=== PATIENT | female | born 1985 | race Caucasian/White ===

== ENCOUNTER 2017-05-04 17:47 | Emergency (ER) | payer OTHER, SELFPAY ==
[2017-05-04 18:26] LABS: UTC Influenza A Antigen Negative (Negative); UTC Influenza B Antigen Negative (Negative)
[2017-05-04 19:32] VITALS: BP 113/72; PULSE 81; RESP 16; TEMP 37.1; O2SAT 96; BMI 29.9
--- NOTE | 2017-05-04 19:37 | HMH.EDUTC ---
[facility] [place] Clinical Impression: Migraine Qualifiers: Migraine type: unspecified Status migrainosus presence: without status migrainosus Intractability: intractable Qualified Code(s): G43.919 - Migraine, unspecified, intractable, without status migrainosus Disposition: Home, Self-Care Condition on Discharge: Good Instructions: Migraine Headaches (Alternative Therapy), Migraine -- Adult, DI for Migraine, DI for Fever (Symptom) -- Adult Additional Instructions: If Migraine returns follow up with family doctor If you began to have the worst headache of your life go straight to the ER Return if needed Over the counter Motrin or Tylenol as needed for fever or pain Referrals: Srini Lam [Primary Care Provider] - Time of Disposition: 20:18 Medical Decision Making - Medical Records Medical records reviewed: Yes: I reviewed the patient's medical records. Vital Signs: 05/04/17 19:32 Temperature 98.8 F Temperature Source Temporal Artery Scan Pulse Rate [Left Brachial] 81 Respiratory Rate 16 Blood Pressure [Left Arm] 113/72 Blood Pressure Mean [Left Arm] 85 Blood Pressure Source [Left Arm] Automatic Cuff Blood Pressure Position [Left Arm] Sitting 02 Sat by Pulse Oximetry 96 Oxygen Delivery Method Room Air - Lab Data Lab Results 05/04/17 18:19: Influenza Type A Ag Negative, Influenza Type B Ag Negative Orders (Tests/Meds): ED MEDICATIONS Discontinued Medications Generic Name Dose Route Start Last Admin Trade Name Freq PRN Reason Stop Dose Admin Diphenhydramine HCl 25 mg 05/04/17 19:59 05/04/17 20:17 Benadryl 50mg/1ml Vial IM 05/04/17 20:00 25 mg ONCE ONE Administration Ketorolac Tromethamine 60 mg 05/04/17 20:05 05/04/17 20:17 Toradol 60mg/2ml Vial IM 05/04/17 20:06 60 mg ONCE ONE Administration Methylprednisolone Sodium Succinate 125 mg 05/04/17 20:01 Solu-Medrol 125mg/2ml Vial IM 05/04/17 20:02 ONCE ONE Metoclopramide HCl 10 mg 05/04/17 19:58 Metoclopramide 10mg Tablet PO 05/04/17 19:59 ONCE ONE Metoclopramide HCl 10 mg 05/04/17 20:04 05/04/17 20:17 Metoclopramide 10mg Tablet PO 05/04/17 20:05 10 mg ONCE ONE Administration - Venancio Inquiry Pt receiving controlled substance: No Venancio was queried for this patient: No - Reevaluation(s) Time: 20:30 (Patient state that headache improved since medication ) [facility] [place] - General Stated complaint: NOE,FEVER Mode of Arrival: Ambulatory Source of Information: Patient Limitations: No Limitations Description of Symptoms (Recalled from Triage Doc. by RN): C/O MIGRAINES, CONGESTION, BODYACHES, CHILLS HEENT Symptoms (Recalled from RN notes): Yes (MIGRAINES) Resp Symptoms (Recalled from RN notes): Yes (CONGESTION) Skin Symptoms (Recalled from RN notes): No MS Symptoms (Recalled from RN notes): Yes (BODYACHES) Functional Status (Recalled from RN notes): N/A - History of Present Illness Provider Complaint: Patient state that she woke up in the middle of the night last night with migraine headache. State that she has a history of migraines and this one feels like the others States that she was also having chills, fever and body aches State that she took some Motrin and went back to sleep then when she woke up today it was back and has continued throughout the day so she came in to get checked - Related Data Home Medications Medication Instructions Recorded Confirmed No Known Home Medications [No 05/04/17 05/04/17 Known Home Medications] Allergies Allergy/AdvReac Type Severity Reaction Status Date / Time Sulfa (Sulfonamide Allergy Unknown Verified 05/04/17 19:36 Antibiotics) [SULFA (SULFONAMIDE ANTIBIOTICS)] - Worker's Comp Is this a Worker's Comp case?: No [facility] History I have reviewed the patient's past medical history: Yes Medical History: Denies:: Cancer, Diabetes Mellitus Type 1, Diabetes Mellitus Type 2, MRSA Amputation: No
--- NOTE | 2017-05-04 19:41 | ED_ITS ---
[facility] [place] Disposition Clinical Impression: Migraine Qualifiers: Migraine type: unspecified Status migrainosus presence: without status migrainosus Intractability: intractable Qualified Code(s): G43.919 - Migraine, unspecified, intractable, without status migrainosus Disposition: Home, Self-Care Condition on Discharge: Good Instructions: Migraine Headaches (Alternative Therapy), Migraine -- Adult, DI for Migraine, DI for Fever (Symptom) -- Adult Additional Instructions: If Migraine returns follow up with family doctor If you began to have the worst headache of your life go straight to the ER Return if needed Over the counter Motrin or Tylenol as needed for fever or pain Referrals: Srini Lam [Primary Care Provider] - Time of Disposition: 20:18 Medical Decision Making - Medical Records Medical records reviewed: Yes: I reviewed the patient's medical records. Vital Signs: 05/04/17 19:32 Temperature 98.8 F Temperature Source Temporal Artery Scan Pulse Rate [Left Brachial] 81 Respiratory Rate 16 Blood Pressure [Left Arm] 113/72 Blood Pressure Mean [Left Arm] 85 Blood Pressure Source [Left Arm] Automatic Cuff Blood Pressure Position [Left Arm] Sitting 02 Sat by Pulse Oximetry 96 Oxygen Delivery Method Room Air - Lab Data Lab Results 05/04/17 18:19: Influenza Type A Ag Negative, Influenza Type B Ag Negative Orders (Tests/Meds): ED MEDICATIONS Discontinued Medications Generic Name Dose Route Start Last Admin Trade Name Freq PRN Reason Stop Dose Admin Diphenhydramine HCl 25 mg 05/04/17 19:59 05/04/17 20:17 Benadryl 50mg/1ml Vial IM 05/04/17 20:00 25 mg ONCE ONE Administration Ketorolac Tromethamine 60 mg 05/04/17 20:05 05/04/17 20:17 Toradol 60mg/2ml Vial IM 05/04/17 20:06 60 mg ONCE ONE Administration Methylprednisolone Sodium Succinate 125 mg 05/04/17 20:01 Solu-Medrol 125mg/2ml Vial IM 05/04/17 20:02 ONCE ONE Metoclopramide HCl 10 mg 05/04/17 19:58 Metoclopramide 10mg Tablet PO 05/04/17 19:59 ONCE ONE Metoclopramide HCl 10 mg 05/04/17 20:04 05/04/17 20:17 Metoclopramide 10mg Tablet PO 05/04/17 20:05 10 mg ONCE ONE Administration - Venancio Inquiry Pt receiving controlled substance: No Venancio was queried for this patient: No - Reevaluation(s) Time: 20:30 (Patient state that headache improved since medication ) [facility] [place] HPI - General Stated complaint: NOE,FEVER Mode of Arrival: Ambulatory Source of Information: Patient Limitations: No Limitations Description of Symptoms (Recalled from Triage Doc. by RN): C/O MIGRAINES, CONGESTION, BODYACHES, CHILLS HEENT Symptoms (Recalled from RN notes): Yes (MIGRAINES) Resp Symptoms (Recalled from RN notes): Yes (CONGESTION) Skin Symptoms (Recalled from RN notes): No MS Symptoms (Recalled from RN notes): Yes (BODYACHES) Functional Status (Recalled from RN notes): N/A - History of Present Illness Provider Complaint: Patient state that she woke up in the middle of the night last night with migraine headache. State that she has a history of migraines and this one feels like the others States that she was also having chills, fever and body aches State that she took some Motrin and went back to sleep then when she woke up today it was back and has continued throughout the d
[2017-05-04 20:30] VITALS: BP 113/72; PULSE 81; RESP 16; TEMP 37.1; O2SAT 96
[2017-05-04 20:33] LABS: UTC Pregnancy Test, Urine Negative (Negative); UTC Strep Screen (Rapid) Negative (Negative)
== END 2017-05-04 20:33 | disposition home or self-care (01) ==
PROVIDERS: Emergency Provider Nurse Practitioner; Family Provider Family Medicine; PCP Family Medicine
DX: G43.919 Migraine, unspecified, intractable, without status migrainosus (principal); Z88.2 Allergy status to sulfonamides; F17.210 Nicotine dependence, cigarettes, uncomplicated
CPT/HCPCS: 81025; 87804; 87880; 96372; 99203

== ENCOUNTER → 2018-03-24 12:52 | Outpatient (CLI) | payer OTHER, SELFPAY ==
[2018-03-24 14:49] LABS: Basophils % 0.5 % (0.1-2.0); Eosinophils # 0.3 K/mm3 (0.0-0.4); Eosinophils % 3.2 % (0.1-12.0); Hematocrit 45.2 % (37.0-47.0); Hemoglobin 14.6 g/dL (12.2-16.2); Lymphocytes # 1.9 K/mm3 (0.7-4.5); Lymphocytes % 22.9 % (10-50); Mean Corpuscular HGB Conc 32.3 g/dL (31.8-35.4); Mean Corpuscular Hemoglobin 30.5 pg (27.0-31.2); Mean Corpuscular Volume 94.6 fl (81-99); Mean Platelet Volume 8.8 fl (7.4-10.4); Monocytes # 0.4 K/mm3 (0.1-1.0); Monocytes % 4.6 % (1.7-9.3); Neutrophils # 5.8 K/mm3 (1.8-7.8); Neutrophils % 68.8 % (37.0-80.0); Platelet Count 225 K/mm3 (142-424); Red Blood Count 4.78 M/mm3 (4.20-5.40); Red Cell Distribution Width 13.7 % (11.5-17.5); White Blood Count 8.4 K/mm3 (4.8-10.8)
[2018-03-25 08:15] LABS: Rapid Plasma Reagin Ab Titer Non Reactive (NonRea<1:1)
[2018-03-27 09:34] LABS: HIV Screen 4th Generation wRfx Non Reactive (Non Reactive); Hepatitis B Surface Antigen Negative (Negative); Hepatitis C Antibody <0.1 s/co ratio (0.0-0.9); Rubella Antibodies, IgG 1.77 index (Immune >0.99)
== END ==
PROVIDERS: Visit Provider Nurse Practitioner Obstetrics & Gynecology
DX: Z34.90 Encounter for supervision of normal pregnancy, unspecified, unspecified trimester (principal); Z3A.01 Less than 8 weeks gestation of pregnancy
CPT/HCPCS: 36415; 85025; 86592; 86703; 86762; 86850; 87340; 87380; G0432

== ENCOUNTER → 2018-04-03 08:43 | Outpatient (CLI) | payer OTHER, SELFPAY ==
--- NOTE | 2018-04-03 08:46 | US_ITS ---
US OB transvaginal HISTORY: ITS.REASON: US OB Dates ORDERING PHYSICIAN: Chris Lopez MD PATIENT AGE: 32 years COMPARISON: None FINDINGS: An intrauterine gestational sac is present with a pole with a crown-rump length of 1.42cm correlating to gestational age of 7w6d. heart tones are present with an FHR of 144 bpm's. Yolk sac is noted. The amnion and chorion have not yet fused. There is a small collection of fluid adjacent to the gestational sac which could be an older area of subchorionic hemorrhage. Adnexa: Unremarkable. IMPRESSION: Live intrauterine gestation at 7 weeks 6 days as described above. Estimated due date by Ultrasound is 11/14/2018 Small area of fluid along the superior aspect of the gestational sac which could be due to a small area of subchorionic hemorrhage. Continued follow-up recommended
== END ==
PROVIDERS: PCP Nurse Practitioner Obstetrics & Gynecology; Visit Provider Nurse Practitioner Obstetrics & Gynecology
DX: O26.841 Uterine size-date discrepancy, first trimester (principal)
CPT/HCPCS: 76817

== ENCOUNTER → 2018-06-28 12:55 | Outpatient (CLI) | payer OTHER, SELFPAY ==
--- NOTE | 2018-06-28 12:59 | US_ITS ---
US OB /maternal detail: INDICATION: ITS.REASON: 20 wk Anatomy Scan-US Complete ORDERING PHYSICIAN: Chris Lopez MD PATIENT AGE: 32 years TECHNIQUE: ultrasound transabdominal scanning. COMPARISON: No previous relevant studies. FINDINGS: Single viable intrauterine gestation. Ceph position. Placenta: Post placenta grade 1. There is average amount fluid. The cervix appears satisfactory. Closed and measuring 5 cm in length. Complete survey performed and was unremarkable on the submitted images as in PACS. No discrete anomalies identified on survey imaging by technologist. Active fetus. Three-vessel cord with satisfactory umbilical cord insertion. 4- chamber heart noted. Survey of brain & ventricles unremarkable. Face and neck survey unremarkable. Diaphragm and chest views unremarkable. Abdomen: Both kidneys noted and unremarkable. Stomach noted and satisfactory. Spine: Survey of the spine satisfactory with no anomalies identified nor imaged. Both arms and legs noted. Amniotic Fluid: Adequate. Maternal adnexa: No significant findings. Measurements: Average ultrasound age 20w3d. Gestational Age 20w0d. Estimated due date by ultrasound age 0711/12/2018. Estimated weight 339 grams. BPD = 21w0d OFD = 20w4d HC = 20w0d AC = 20w3d FL = 20w1d Growth Percentile= 57 percent Heart Rate = 144 Cerebellum = 20w6d Humerus = 20w2d HC/AC is 1.15 (1.09-1.26). CI is 81% (70-86%). FL/BPD is 65%. FL/AC is 21%. IMPRESSION: There is a single live fetus which is in the cephalic presentation with an average ultrasound age of 20 weeks and 3 days. heart and body motion noted. No obvious anomalies. All parameters correlate. Please see above for details.
== END ==
PROVIDERS: PCP Nurse Practitioner Obstetrics & Gynecology; Visit Provider Nurse Practitioner Obstetrics & Gynecology
DX: Z36.0 Encounter for antenatal screening for chromosomal anomalies (principal)
CPT/HCPCS: 76811

== ENCOUNTER → 2018-08-22 08:09 | Outpatient (CLI) | payer OTHER, SELFPAY ==
[2018-08-22 08:44] LABS: Glucose,Fasting 78 mg/dL (60-105)
[2018-08-22 10:57] LABS: Glucose 1 Hour 133 mg/dL (74-106)
== END ==
PROVIDERS: Visit Provider Nurse Practitioner Obstetrics & Gynecology
DX: Z34.90 Encounter for supervision of normal pregnancy, unspecified, unspecified trimester (principal)
CPT/HCPCS: 36415; 82951

== ENCOUNTER 2018-08-25 10:28 | Outpatient (CLI) | payer OTHER, SELFPAY ==
[2018-08-25 11:01] VITALS: BP 144/74; PULSE 87; RESP 18; TEMP 36.6; O2SAT 99; BMI 33.4
[2018-08-25 11:24] LABS: Amphetamine/Metha Screen,Urine Negative ng/mL (<1000); Barbiturates Screen,Urine Negative ng/mL (<200); Benzodiazepines Screen,Urine Negative ng/mL (<200); Cannabinoid Screen,Urine Negative ng/mL (<50); Cocaine Screen,Urine Negative ng/mL (<300); Methadone Screen,Urine Negative ng/mL (<300); Opiate Screen,Urine Negative ng/mL (<300); Phencyclidine Screen,Urine Negative ng/mL (<25)
[2018-08-25 11:26] LABS: Microscopic, Urine URINE MICROSCOPIC (MICROSCOPIC)
[2018-08-25 11:27] LABS: Appearance,Urine CLEAR (Clear); Bilirubin,Urine Negative (Negative); Blood, Urine Negative (Negative); Color,Urine YELLOW (Yellow); Glucose,Urine (UA) Negative (Negative); Ketones,Urine Negative (Negative); Leukocyte Esterase,Urine 1+ (Negative); Nitrate,Urine Negative (Negative); Protein,Urine Negative (Negative); Urobilinogen,Urine 0.2 EU/dl (0.2)
[2018-08-25 11:35] LABS: Bacteria,Urine 2+ /lpf; Mucus,Urine 1+ /lpf
--- NOTE | 2018-08-25 12:46 | P.PN_ITS ---
Internal Medicine - PN: Subj *Date: 08/25/18 *Time: 12:37 Interval history: She is a 32-year-old 2 para 1 at 20 weeks gestational age. She is complaining of contractions. Exam Vital signs and Labs for Last 24 Hours: Temp Pulse Resp BP Pulse Ox 97.9 F 87 18 144/74 H 99 08/25/18 11:01 08/25/18 11:01 08/25/18 11:01 08/25/18 11:01 08/25/18 11:01 Laboratory Results - last 24 hr 08/25/18 10:40: Urine Color Yellow, Urine Appearance Clear, Urine pH 7.0, Ur Specific [place] 1.010, Urine Protein Negative, Urine Glucose (UA) Negative, Urine Ketones Negative, Urine Blood Negative, Urine Nitrate Negative, Urine Bilirubin Negative, Urine Urobilinogen 0.2, Ur Leukocyte Esterase 1+ A, Urine WBC 3-5, Ur Squamous Epith Cells 5-10, Urine Bacteria 2+, Urine Mucus 1+ 08/25/18 10:40: Urine Opiates Screen Negative, Urine Methadone Screen Negative, Ur Barbituates Screen Negative, Ur Phencyclidine Scrn Negative, Ur Amphetamines Screen Negative, U Benzodiazepines Scrn Negative, Urine Cocaine Screen Negative, U Marijuana (THC) Screen Negative I & O for Last 24 hours: Intake & Output 08/23/18 08/24/18 08/25/18 08/26/18 11:59 11:59 11:59 11:59 Weight 201 lb - Constitutional no acute distress - *Routine HEENT Exam Head: Present: normocephalic Eye: Present: EOMI, PERRL ENT: Present: mucous membranes moist - *Routine Neck Exam Present: supple, full ROM - *Routine Respiratory Exam Absent: accessory muscle use (good air entry bilaterally), wheezes, crackles - *Routine Cardiovascular Exam Present: RRR. Absent: murmur - *Routine Abdominal Exam Present: soft, normoactive bowel sounds. Absent: tenderness, rebound, guarding, mass - *Routine Rectal Exam Patient deferred: visual exam, digital exam - *Routine Exam Patient deferred: external exam, groin exam, perineal exam - *Routine Extremities Exam Present: full ROM. Absent: cyanosis, edema, calf tenderness - *Routine Skin Exam Present: intact (good color) - *Routine Neurological Exam Present: alert, oriented X3 - Routine Psychiatric Exam Present: normal affect Assessment and Plan (1) labor in third trimester Current visit: Yes Status: Acute Category: Medical Code(s): O60.03 - labor without delivery, third trimester - Assessment and plan all Dx Assessment and Plan for all problems:: We have given her IV fluids as well as 1 shot of Brethine. She also has received a dose of steroids and will return tomorrow for another dose of steroids. Contractions have settled. She has an appointment with me next week. Her cervix is closed internally but 2 cm externally. The head is station -1. I told her to get as much rest as possible. 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 I told her to take the next few days off and I will see her first of the week in the office. She will return tomorrow for another dose of steroids. She will return if she has any further episodes of contractions. I have also encouraged her to drink plenty of fluids.
== END 2018-08-25 12:40 | disposition home or self-care (01) ==
LOC: OBOUT 10:32 → OB 10:32
PROVIDERS: Visit Provider Nurse Practitioner Obstetrics & Gynecology
DX: O60.03 Preterm labor without delivery, third trimester (principal); Z3A.28 28 weeks gestation of pregnancy
CPT/HCPCS: 59025; 80305; 81001; 87086; 96360; 96372

== ENCOUNTER 2018-08-25 23:58 | Observation (INO) ==
[2018-08-26 00:32] VITALS: BP 150/86
--- NOTE | 2018-08-26 09:21 | History & Physical Report ---
OB - H&P: HPI Antepartum - History of Present Illness Chief complaint: labor History of present illness: She is a 32-year-old 2 para 1 who complains of contractions. She was seen here in labor and delivery yesterday and received Brethine as well as a liter of fluid. She subsequently was discharged home. Last evening she began to have more contractions and I asked her to come back to labor and delivery. [facility] History I have reviewed the patient's past medical history: Yes Medical History: Denies:: Cancer, Diabetes Mellitus Type 1, Diabetes Mellitus Type 2, MRSA *Have you ever received a pneumonia vaccine?: No *Have you received a flu vaccine this season?: No Other Surgeries: No: Amputation: No Fractures: No - *Social History Smoking Status: Current every day smoker Tobacco Type: cigarettes # Packs/Day (cigarettes): 1 Alcohol Intake: never Substance Use Type: denies use *Occupational Status:: employed Family Hx:: No significant family history Para: 1 Review of Systems - Review of Systems Review of systems:: pertinent systems reviewed and negative unless documented below Meds Home Medications Medication Instructions Recorded Confirmed Type 1 tab PO DAILY 04/26/18 08/25/18 History vitamin,calcium,bssaiutr-tqdk-kodck acid tablet Allergies Allergy/AdvReac Type Severity Reaction Status Date / Time Sulfa (Sulfonamide Allergy Unknown Verified 08/15/18 08:24 Antibiotics) [SULFA (SULFONAMIDE ANTIBIOTICS)] OB - H&P: Exam - Physical Exam Vital signs: Temp Pulse Resp BP Pulse Ox 98.8 F 117 H 18 150/86 H 96 08/26/18 00:28 08/26/18 00:28 08/26/18 00:28 08/26/18 00:28 08/26/18 00:28 - Constitutional no acute distress - Routine HEENT Exam Head: Present: normocephalic Eye: Present: EOMI, PERRL ENT: Present: mucous membranes moist - Routine Neck Exam Present: supple, full ROM - Routine Respiratory Exam Absent: accessory muscle use (good air entry bilaterally), respiratory distress, wheezes, crackles - Routine Cardiovascular Exam Present: RRR. Absent: murmur - Routine Abdominal Exam Present: soft, normoactive bowel sounds. Absent: tenderness, distended, guarding - Routine Rectal Exam Patient deferred: visual exam, digital exam - Routine Exam Patient deferred: external exam, groin exam, perineal exam - Routine Extremities Exam Present: full ROM. Absent: cyanosis, edema - Routine Skin Exam Present: intact. Absent: cyanosis - Routine Neurological Exam Present: alert, oriented X3 - Routine Psychiatric Exam Present: normal affect OB - A/P Antepartum (1) labor in third trimester Current visit: No Status: Acute - Additional Plan Plan: expectant management Additional Information:: She has received more fluids overnight as well as nifedipine. She has been taking nifedipine 10 mg every 6 hours. This seems to have settled her contractions. She is scheduled for another dose of Celestone later this morning. She does well this morning. We will send her home this afternoon.
--- NOTE | 2018-08-26 09:24 | Discharge Summary ---
General - General Admission date:: 08/26/18 Discharge date: 08/26/18 HPI HPI: She is a 32-year-old 2 para 1 at 20 weeks gestational age. She complains of contractions. She was seen yesterday afternoon with contractions and received IV fluids as well as Brethine. This settled her contractions. She subsequently began having more contractions later on that evening and she was admitted for labor. Hospital Course Hospital Course: She was admitted and received IV fluids. We started her on nifedipine 10 mg every 6 hours. This seemed to have settled her contractions. She did receive Celestone yesterday afternoon when she was here for her first bout of labor. She will receive a second dose prior to discharge this morning. She is no longer lisseth and the nonstress test is reactive. Objective Vital signs: Temp Pulse Resp BP Pulse Ox 98.8 F 117 H 18 150/86 H 96 08/26/18 00:28 08/26/18 00:28 08/26/18 00:28 08/26/18 00:28 08/26/18 00:28 no acute distress DS: Diagnosis - Discharge Diagnosis (1) labor in third trimester Status: Acute Discharge Plan - Patient Discharge Instructions ACTIVITY: No heavy lifting DIET: continue same diet - Follow up Plan Disposition: Home, Self-Assisted Medications: Home Medications Medication Instructions Recorded Confirmed Type 1 tab PO DAILY 04/26/18 08/25/18 History vitamin,calcium,cszqomrt-ezlv-rpjwi acid tablet NIFEdipine [NIFEdipine 10mg 10 mg PO Q6H #120 cap 08/26/18 Rx Capsule] Prescriptions/Medication Reconciliation: New NIFEdipine [NIFEdipine 10mg Capsule] 10 mg PO Q6H #120 cap Continued vitamin,calcium,cqokffyc-krqd-ktljf acid tablet 1 tab PO DAILY
== END 2018-08-26 12:00 | disposition home or self-care (01) ==
LOC: OB 23:58 → OBOUT 23:58 → OB 08-26 00:01
PROVIDERS: ADMIT Nurse Practitioner Obstetrics & Gynecology; ATTEND Nurse Practitioner Obstetrics & Gynecology
CPT/HCPCS: 59025; 96360; 96372; G0378

== ENCOUNTER 2018-08-30 14:36 | Outpatient (CLI) | payer OTHER, SELFPAY ==
[2018-08-30 14:47] VITALS: BMI 33.1
[2018-08-30 17:36] LABS: Microscopic, Urine URINE MICROSCOPIC (MICROSCOPIC)
[2018-08-30 17:40] LABS: Appearance,Urine CLEAR (Clear); Bilirubin,Urine Negative (Negative); Blood, Urine Negative (Negative); Color,Urine YELLOW (Yellow); Glucose,Urine (UA) Negative (Negative); Ketones,Urine Negative (Negative); Leukocyte Esterase,Urine 3+ (Negative); Nitrate,Urine Negative (Negative); Protein,Urine Negative (Negative); Urobilinogen,Urine 0.2 EU/dl (0.2)
[2018-08-30 18:09] LABS: Amphetamine/Metha Screen,Urine Negative ng/mL (<1000); Barbiturates Screen,Urine Negative ng/mL (<200); Benzodiazepines Screen,Urine Negative ng/mL (<200); Cannabinoid Screen,Urine Negative ng/mL (<50); Cocaine Screen,Urine Negative ng/mL (<300); Methadone Screen,Urine Negative ng/mL (<300); Opiate Screen,Urine Negative ng/mL (<300); Phencyclidine Screen,Urine Negative ng/mL (<25)
[2018-08-30 18:10] VITALS: BP 137/87; PULSE 109; RESP 18; TEMP 36.9; O2SAT 98
[2018-08-30 18:11] VITALS: BP 137/87; PULSE 109; RESP 18; TEMP 36.9; O2SAT 98; BMI 33.1
[2018-08-30 18:11] LABS: Bacteria,Urine Trace /lpf; WBC,Urine Occasional #/hpf (0-3)
== END 2018-08-30 17:50 | disposition home or self-care (01) ==
LOC: OBOUT 14:37 → OB 14:38
PROVIDERS: Visit Provider Nurse Practitioner Obstetrics & Gynecology
DX: O60.03 Preterm labor without delivery, third trimester (principal); Z3A.29 29 weeks gestation of pregnancy
CPT/HCPCS: 59025; 80305; 81001; 87086; 96360

== ENCOUNTER → 2018-10-12 15:46 | Outpatient (CLI) | payer OTHER, SELFPAY | PROVIDERS: Visit Provider Nurse Practitioner Obstetrics & Gynecology | DX: Z34.90 Encounter for supervision of normal pregnancy, unspecified, unspecified trimester (principal) | CPT/HCPCS: 86403 ==

== ENCOUNTER → 2018-10-27 08:48 | Outpatient (CLI) | payer OTHER, SELFPAY ==
--- NOTE | 2018-10-27 08:50 | US_ITS ---
US OB BPP w/Fet-Mat S/D: Indication: ITS.REASON: US OB- BPP Growth S/D Ratio- SGA ORDERING PHYSICIAN: Chrsi Lopez MD PATIENT AGE: 32 years FINDINGS: Transabdominal imaging The following parameters are obtained: Single live fetus is present in breech presentation. The urinary bladder of the fetus is somewhat prominent of questionable clinical significance. Average ultrasound age is 37w2d. Estimated due date by ultrasound is 11/15/2018. Estimated weight is 3078. The 49th percentile BPD: 38w1d OFD: OFD HC: 38w2d AC: 37w2d FL: 35w2d heart rate: 126 bpm. HC/AC: 1.00 (0.92-1.05) Cephalic index: 79% (70-86%) FL/BPD: 73% (71-87%) FL/AC: 21% (20-24%) Amniotic fluid index: 13 cm Qualitative AFV: 2 breathing movements: 2 Gross body movements: 2 Tone: 2 Biophysical profile score: 8/8 Doppler evaluation of the umbilical artery: SD ratio: 2.5 Resistive index: 0.60 No obvious anomalies evident. Placenta: Fundal and grade 2-3 Cervix: Appears closed and measures 3 cm IMPRESSION: Single live fetus in breech presentation with an average ultrasound age of 37 weeks and 2 days. Estimated weight is 3078 g which is 49th percentile. The femur length is slightly low but the FL/BPD and FL/AC are at lower limits of normal. Please see above for details Normal amniotic fluid volume with a biophysical profile. 8/8 and unremarkable Doppler evaluation of the umbilical artery
== END ==
PROVIDERS: Visit Provider Nurse Practitioner Obstetrics & Gynecology
DX: O36.5990 Maternal care for other known or suspected poor fetal growth, unspecified trimester, not applicable or unspecified (principal)
CPT/HCPCS: 76819

== ENCOUNTER 2018-11-08 11:28 | Inpatient (IN) ==
[2018-11-08 11:45] LABS: Microscopic, Urine URINE MICROSCOPIC (MICROSCOPIC)
[2018-11-08 11:47] LABS: Appearance,Urine SL CLOUDY (Clear); Blood, Urine Negative (Negative); Color,Urine DK YELLOW (Yellow); Glucose,Urine (UA) Negative (Negative); Ketones,Urine Negative (Negative); Leukocyte Esterase,Urine TRACE (Negative); PH,Urine 6.5 (5.0-8.5); Protein,Urine TRACE (Negative); Specific Gravity, Urine 1.025 (1.005-1.030); Urobilinogen,Urine 0.2 EU/dl (0.2)
[2018-11-08 11:55] LABS: Amphetamine/Metha Screen,Urine Negative ng/mL (<1000); Barbiturates Screen,Urine Negative ng/mL (<200); Benzodiazepines Screen,Urine Negative ng/mL (<200); Cannabinoid Screen,Urine Negative ng/mL (<50); Cocaine Screen,Urine Negative ng/mL (<300); Methadone Screen,Urine Negative ng/mL (<300); Opiate Screen,Urine Negative ng/mL (<300); Phencyclidine Screen,Urine Negative ng/mL (<25)
[2018-11-08 12:02] LABS: Bilirubin,Urine Negative (Negative)
[2018-11-08 12:08] LABS: Bacteria,Urine Trace /lpf; WBC,Urine Occasional #/hpf (0-3)
--- NOTE | 2018-11-08 13:26 | Progress Note ---
[facility] Anesthesia Checklist - Patient Identification Patient Identification: Arm Band - Structural Data Admitted From: Inpatient Planned Operative Procedure/s: primary c/s, btl Consent for Planned Operative Procedure(s) Verified: Yes Verified Documents: Surgical Consent, History and Physical - NPO Status Verified Time NPO: 00:00 - Additional verifications Anesthesia Reactions: No - Airway Assessment C-Spine Mobility Assessed: Yes (mp2) TMJ Mobility Assessed: Yes Dentition: Good Dentition - Neurological Assessment Level of Consciousness: Awake, Alert - Anesthesia Plan Anesthesia Risk discussed: Yes Anesthesia Plan: Verified ASA Class: II Anesthesia Type: Spinal [facility] History I have reviewed the patient's past medical history: Yes Medical History: Reports:: Gastroesophageal Reflux Disease(GERD) Denies:: Cancer, Diabetes Mellitus Type 1, Diabetes Mellitus Type 2, MRSA *Have you ever received a pneumonia vaccine?: No *Have you received a flu vaccine this season?: No Other Surgeries: Yes: Appendectomy, Other. No: Amputation: No Fractures: No - *Social History Smoking Status: Current every day smoker Tobacco Type: cigarettes # Packs/Day (cigarettes): 1 Alcohol Intake: never Substance Use Type: denies use *Occupational Status:: employed *Travel in the last 8 weeks: Inside the [facility] Family Hx:: No significant family history Para: 1
--- NOTE | 2018-11-08 13:28 | Progress Note ---
Internal Medicine - PN: Subj *Date: 11/08/18 *Time: 13:23 Interval history: She came in in active labor and is having regular contractions. She is noted to be breech and had been scheduled for tomorrow morning. Her cervix is 4 cm with the high presented part. She also had a small amount of vaginal bleeding that I suspect was related to changes in her cervix. Nonstress test is otherwise reactive. We will make arrangements for her to have a section this afternoon. Exam Vital signs and Labs for Last 24 Hours: Temp Pulse Resp BP Pulse Ox 97.5 F L 108 H 18 132/82 97 11/08/18 11:45 11/08/18 11:45 11/08/18 11:45 11/08/18 11:45 11/08/18 11:45 Laboratory Results - last 24 hr 11/08/18 11:35: Urine Color Dk yellow, Urine Appearance Sl cloudy, Urine pH 6.5, Ur Specific [place] 1.025, Urine Protein Trace, Urine Glucose (UA) Negative, Urine Ketones Negative, Urine Blood Negative, Urine Nitrate Negative, Urine Bilirubin Negative, Urine Urobilinogen 0.2, Ur Leukocyte Esterase Trace, Urine RBC None, Urine WBC Occasional, Ur Squamous Epith Cells 3-5, Urine Bacteria Trace 11/08/18 11:35: Urine Opiates Screen Negative, Urine Methadone Screen Negative, Ur Barbituates Screen Negative, Ur Phencyclidine Scrn Negative, Ur Amphetamines Screen Negative, U Benzodiazepines Scrn Negative, Urine Cocaine Screen Negative, U Marijuana (THC) Screen Negative I & O for Last 24 hours: Intake & Output 11/06/18 11/07/18 11/08/18 11/09/18 11:59 11:59 11:59 11:59 Weight 214 lb - Constitutional no acute distress Assessment and Plan (1) Breech presentation at Current visit: Yes Status: Acute Category: Medical Code(s): O32.1XX0 - Maternal care for breech presentation, not applicable or unspecified - Assessment and plan all Dx Assessment and Plan for all problems:: We will go ahead with a section this afternoon.
[2018-11-08 14:09] LABS: Basophils % 0.2 % (0.1-2.0); Eosinophils # 0.1 K/mm3 (0.0-0.4); Eosinophils % 0.9 % (0.1-12.0); Hematocrit 36.4 % (37.0-47.0); Hemoglobin 11.7 g/dL (12.2-16.2); Lymphocytes # 1.8 K/mm3 (0.7-4.5); Lymphocytes % 15.5 % (10-50); Mean Corpuscular HGB Conc 32.3 g/dL (31.8-35.4); Mean Corpuscular Volume 85.3 fl (81-99); Monocytes # 1.1 K/mm3 (0.1-1.0); Monocytes % 9.3 % (1.7-9.3); Neutrophils # 8.6 K/mm3 (1.8-7.8); Platelet Count 196 K/mm3 (142-424); Red Blood Count 4.27 M/mm3 (4.20-5.40); Red Cell Distribution Width 14.6 % (11.5-17.5); White Blood Count 11.6 K/mm3 (4.8-10.8)
--- NOTE | 2018-11-08 15:17 | Progress Note ---
[facility] Anesthesia Record Part I Intake, IV Amount: 1,000 Estimated blood loss (mL): 1,000 Urine output (mL): 100 Blood Products used (#): none Blood Pressure: 111/64 SaO2: 98 Pulse Rate: 82 Respiratory Rate: 20 Temperature: 97.7 F Patient is:: Awake, Stable Stable to PACU at:: 15:14
--- NOTE | 2018-11-08 15:18 | Progress Note ---
[facility] Anesthesia Record Part II Discharge Time: 15:44 Destination: Obstetric PACU nurse assessment reviewed?: Yes Patient Condition:: Good Anesthesia Complications:: None Swallowing reflex intact?: Yes Cyanosis?: No
--- NOTE | 2018-11-08 15:18 | Operative Note ---
Date of procedure: 11/08/18 Pre-op Diagnosis:: Term , active labor, breech presentation, desire for sterilization Post-op Diagnosis:: Term , active labor, breech presentation, desire for sterilization Procedure performed:: Primary lower segment transverse section and bilateral tubal ligation Surgeon:: Chris Lopez MD Stone Driller(s):: Dr. Betancourt BURIAL VAULT MAKER:: London Nuñez Anesthesia: spinal Estimated blood loss (mL): 1,000 Clinical Note:: She is a 33-year-old 3 para 2 who is 39 weeks gestational age. She was due to have a section tomorrow for breech presentation. She also expressed desire for sterilization. She came in in active labor and her cervix was found to be 4 cm dilated. As a result of that we elected to perform a Diogo lower segment transverse section today. Operative findings:: She delivered a liveborn male child at 2:32 PM in the afternoon of November 08, 2018. The baby Operative note:: She was taken to the operating room where spinal anesthesia was found be adequate. She was prepped and draped in normal sterile fashion in the supine position with a leftward tilt. A Ball catheter was in the bladder. A Pfannenstiel skin incision was made with knife then carried through to the underlying layer of fascia with cautery. The fascia was opened in the midline with cautery and extended laterally using Smith scissors. [place] clamps were applied to the superior aspect of the fascial incision which was tented up and the underlying rectus muscles dissected off using cautery. The Kenny clamps were then applied to the inferior aspect of the fascial incision which in a similar fashion was tented up and the underlying rectus muscles dissected off using cautery. The rectus muscles were then in the midline, the peritoneum identified, and entered sharply with Metzenbaum scissors. This incision was then extended superiorly and inferiorly with cautery. We had good visualization of the bladder inferiorly. The bladder peritoneum was then opened in the midline and extended laterally using Metzenbaum scissors. A bladder flap was created digitally. Transverse incision was made through the uterine muscle to the amnion. This incision was then extended laterally using fingers traction. The amnion was entered sharply with knife. There was clear amniotic fluid. The infant's breech was then delivered atraumatically. This was followed by the after coming head atraumatically. A loose nuchal cord was then reduced. The oropharynx and nasopharynx were bulb suctioned. The infant was then handed off to Dr. Herrera who assigned Apgars of 9 at 1 minute and 9 at 5 minutes. We then obtained cord blood as well as cord pH. The pH was 7.31. Using gentle traction on the cord and countertraction on the fundus I was able to easily deliver the placenta intact. It had a normal three-vessel cord. The uterus was then cleared of clots and debris . The uterine incision was then closed using running 0 Vicryl suture in a locked fashion. A second layer of the same suture was used to imbricate the first layer. The bladder peritoneum was then closed using running 2-0 Vicryl suture in a locked fashion. The gutters and cul-de-sac were then cleared of clots and debris . Once again hemostasis was a ssured. I then performed a tubal ligation by first grasping the tube with a Dexter and making a knuckle of tube. This was clamped across with Pauline clamp and doubly tied. The intervening section of tube was then removed. The distal ends were cauterized. This was similar performed on the patient's opposite side. The uterus was then returned to the abdominal cavity and once again hemostasis was assured. The peritoneum was grasped with Pauline clamps and closed using running 2-0 Vicryl suture. The rectus muscles were then reapproximated using running 0 Vicryl suture. The fascia was closed using running #1 Vicryl suture. The subcutaneous tissues were then irrigated with warm water followed by closure Samuel's fascia using running 2-0 Monocryl suture. The skin was closed with naveed. I then cleaned the skin with Hibiclens. Sterile dressings were applied. She tolerated the procedure well and was taken to the recovery room in excellent condition. All sponges minute and needle counts were correct. Estimate a blood loss was approximately 1000 mL. Condition: stable Disposition: PACU Specimens:: Products of conception, tubes Complications:: None
[2018-11-08 17:15] LABS: Lymphocytes % 16 % (10-50); Monocytes % 6 % (2-9); Neutrophils % 78 % (42-76); RBC Morphology Normal; Total Cells Counted 100
[2018-11-09 05:36] LABS: Hemoglobin 8.9 g/dL (12.2-16.2)
--- NOTE | 2018-11-09 07:48 | Pharmacy Consult Notes ---
[facility] Pharmacy VTE Monitoring - Patient Demographics Admission date: 11/08/18 Report Date: 11/09/18 Time: 07:47 Allergies/Adverse Reactions: Patient Allergies Sulfa (Sulfonamide Antibiotics) [SULFA (SULFONAMIDE ANTIBIOTICS)] Allergy (Unknown, Verified 11/06/18 14:58) Height: 1.65 m Weight: 97.069 kg Patient Problems: Current Active Problems (Updated 11/08/18 @ 13:28 by Chris Lopez MD) Breech presentation at (Acute) - VTE Risk Labs: VTE Related Lab Results Hgb 8.9 g/dL (12.2-16.2) L D 11/09/18 04:57 Hct 28.0 % (37.0-47.0) L 11/09/18 04:57 Plt Count 196 K/mm3 (142-424) 11/08/18 13:25 - Prophylaxis VTE Prophylaxis Ordered?: Yes Types of VTE Prophylaxis: IPCS Thigh High Location of Applied Device: Bilateral Lower Extremeties - VTE Diagnosis Confirmed Treatment or plan recommended: Continue Current Treatment
--- NOTE | 2018-11-09 08:13 | Progress Note ---
Internal Medicine - PN: Subj *Date: 11/09/18 *Time: 08:12 Interval history: She is doing very well this morning. She is eating and drinking and ambulating. She is breast-feeding. Her lochia is normal. Her incision is clean and dry. Exam Vital signs and Labs for Last 24 Hours: Temp Pulse Resp BP Pulse Ox 97.2 F L 82 20 121/67 99 11/08/18 15:44 11/08/18 15:44 11/08/18 15:44 11/08/18 15:44 11/08/18 15:44 Laboratory Results - last 24 hr 11/08/18 11:35: Urine Color Dk yellow, Urine Appearance Sl cloudy, Urine pH 6.5, Ur Specific [place] 1.025, Urine Protein Trace, Urine Glucose (UA) Negative, Ur ine Ketones Negative, Urine Blood Negative, Urine Nitrate Negative, Urine Bilirubin Negative, Urine Urobilinogen 0.2, Ur Leukocyte Esterase Trace, Urine RBC None, Urine WBC Occasional, Ur Squamous Epith Cells 3-5, Urine Bacteria Trace 11/08/18 11:35: Urine Opiates Screen Negative, Urine Methadone Screen Negative, Ur Barbituates Screen Negative, Ur Phencyclidine Scrn Negative, Ur Amphetamines Screen Negative, U Benzodiazepines Scrn Negative, Urine Cocaine Screen Negative, U Marijuana (THC) Screen Negative 11/08/18 13:25: WBC 11.6 H, RBC 4.27, Hgb 11.7 L, Hct 36.4 L, MCV 85.3, MCH 27.5, MCHC 32.3, RDW 14.6, Plt Count 196, Neut % (Auto) 74.0, Lymph % (Auto) 15.5, [place] % (Auto) 9.3, Eos % (Auto) 0.9, Baso % (Auto) 0.2, Neut # (Auto) 8.6 H, Lymph # (Auto) 1.8, [place] # (Auto) 1.1 H, Eos # (Auto) 0.1, Baso # (Auto) 0.0, Total Counted 100, Neutrophils % (Manual) 78 H, Lymphocytes % (Manual) 16, Monocytes % (Manual) 6, Platelet Estimate Normal, RBC Morphology Normal 11/08/18 13:25: Blood Type O Positive, Antibody Screen Negative 11/08/18 15:03: POC Glucose 65 L 11/09/18 04:57: Hgb 8.9 L D, Hct 28.0 L I & O for Last 24 hours: Intake & Output 11/06/18 11/07/18 11/08/18 11/09/18 11:59 11:59 11:59 11:59 Intake Total 1000 / 1000 Output Total 150 / 150 Balance 850 / 850 Weight 214 lb - Constitutional no acute distress Assessment and Plan (1) Breech presentation at Current visit: Yes Status: Acute Category: Medical Code(s): O32.1XX0 - Maternal care for breech presentation, not applicable or unspecified - Assessment and plan all Dx Assessment and Plan for all problems:: She continues to do well. We will plan to send her home in 48 hours.
--- NOTE | 2018-11-10 08:28 | Progress Note ---
Internal Medicine - PN: Subj *Date: 11/10/18 *Time: 08:27 Interval history: She continues to do well. She is eating and drinking and ambulating. Her hemoglobin is slightly low at 8.9 but she is completely asymptomatic. Her breast-feeding is going well. Exam Vital signs and Labs for Last 24 Hours: Temp Pulse Resp BP Pulse Ox 97.2 F L 82 20 121/67 99 11/08/18 15:44 11/08/18 15:44 11/08/18 15:44 11/08/18 15:44 11/08/18 15:44 Laboratory Results - last 24 hr 11/08/18 14:42: Cord ABG pH 7.31 L I & O for Last 24 hours: Intake & Output 11/07/18 11/08/18 11/09/18 11/10/18 11:59 11:59 11:59 11:59 Intake Total 1000 / 1000 Output Total 150 / 150 Balance 850 / 850 Weight 214 lb - Constitutional no acute distress Assessment and Plan (1) Breech presentation at Current visit: Yes Status: Acute Category: Medical Code(s): O32.1XX0 - Maternal care for breech presentation, not applicable or unspecified (2) Delivery by section for breech presentation Current visit: Yes Status: Acute Category: Medical Code(s): O32.1XX0 - M aternal care for breech presentation, not applicable or unspecified (3) anemia, baby delivered during previous episode of care Current visit: Yes Status: Acute Category: Medical Code(s): O90.81 - Anemia of the puerperium - Assessment and plan all Dx Assessment and Plan for all problems:: She is doing very well. We will plan to send her home tomorrow. She will continue with her iron and vitamins when she goes home.
[2018-11-11 08:15] VITALS: BP 112/71
--- NOTE | 2018-11-11 09:55 | Discharge Summary ---
General - General Admission date:: 11/08/18 Discharge date: 11/11/18 HPI HPI: She is a 33-year-old 2 para 1 who was 39 weeks gestational age. She came in in active labor and was known to have a breech presentation. As result that she was offered primary lower segment transverse section. She also expressed desire for sterilization. Hospital Course Hospital Course: On 08 November 2018 she underwent a primary lower segment transverse section and delivered a liveborn male child at 2:32 PM. The baby had Apgars of 9 at 1 minute and weighed 7 pounds 13 ounces. His pH was 7.31. She lost a little more blood than normal and her hemoglobin is 8.9 but she is otherwise asymptomatic. She underwent a bilateral tubal ligation at the time of her section. She is eating and drinking and ambulating. She is breast-feeding. Her consulting business developer is Dr. Herrera. She will continue with her vitamins and iron. She is given a prescription for Percocet 5/325 number 20 tablets as well as ibuprofen 400 mg number 40 tablets. She was given the usual instructions with respect to limiting her activity, driving and sexual activity. Her condition on discharge is stable. Rhogam Administration: Not Indicated Objective Vital signs: Temp Pulse Resp BP Pulse Ox 97.8 F 80 18 112/71 100 11/11/18 08:00 11/11/18 08:00 11/11/18 08:00 11/11/18 08:00 11/11/18 08:00 no acute distress DS: Diagnosis - Discharge Diagnosis (1) Breech presentation at Status: Acute (2) Delivery by section for breech presentation Status: Acute (3) anemia, baby delivered during previous episode of care Status: Acute Discharge Plan - Patient Discharge Instructions ACTIVITY: No heavy lifting DIET: continue same diet Additional Instructions: No heavy lifting, no strenuous activity, and nothing in the vagina for 6 weeks. Patient Instructions: How to Care for a Surgical Wound, Depression, Hemorrhage, DI for , Surgical Site Infection, DI for Postoperative Pain, [facility] Post Discharge Instructions - Follow up Plan Follow up with: Chris Lopez MD [Staff Physician] - Disposition: Home, Self-Fpc Medications: Home Medications Medication Instructions Recorded Confirmed Type 1 tab PO DAILY 04/26/18 11/08/18 History vitamin,calcium,yfoengpy-odtg-tsqgc acid tablet raNITIdine HCl [Ranitidine HCl] 150 mg PO BID 11/08/18 11/08/18 History Ibuprofen [Motrin 400mg 400 mg PO Q4HP PRN #40 tab 11/11/18 Rx tablet] Oxycodone HCl/Acetaminophen 1 - 2 tab PO Q4-6H PRN #20 tab 11/11/18 Rx [Percocet 5/325mg tablet] Prescriptions/Medication Reconciliation: New Oxycodone HCl/Acetaminophen [Percocet 5/325mg tablet] 1 - 2 tab PO Q4-6H PRN #20 tab PRN Reason: Severe Pain Ibuprofen [Motrin 400mg tablet] 400 mg PO Q4HP PRN #40 tab PRN Reason: Moderate Pain Continued vitamin,calcium,vzowpcwo-bwpy-iptmx acid tablet 1 tab PO DAILY raNITIdine HCl [Ranitidine HCl] 150 mg PO BID
== END 2018-11-11 11:10 | disposition home or self-care (01) | DRG 785 ==
LOC: OBOUT 11:28 → OB 11:29
PROVIDERS: ADMIT Nurse Practitioner Obstetrics & Gynecology; ATTEND Nurse Practitioner Obstetrics & Gynecology
CPT/HCPCS: J2405

== ENCOUNTER → 2019-01-10 17:46 | Outpatient (CLI) | payer OTHER, SELFPAY | PROVIDERS: Visit Provider Nurse Practitioner Obstetrics & Gynecology | DX: L02.91 Cutaneous abscess, unspecified (principal) | CPT/HCPCS: 87070; 87077; 87186; 87205 ==

== ENCOUNTER 2020-08-06 22:45 | Emergency (ER) | payer OTHER, SELFPAY ==
[2020-08-06 22:46] VITALS: BP 147/88; PULSE 80; RESP 14; TEMP 36.6; O2SAT 98; BMI 31.3
[2020-08-06 23:21] LABS: Microscopic, Urine URINE MICROSCOPIC (MICROSCOPIC)
[2020-08-06 23:22] LABS: Appearance,Urine CLEAR (Clear); Bilirubin,Urine Negative (Negative); Blood, Urine 2+ (Negative); Color,Urine YELLOW (Yellow); Glucose,Urine (UA) Negative (Negative); Ketones,Urine Negative (Negative); Leukocyte Esterase,Urine Negative (Negative); Nitrate,Urine POSITIVE (Negative); PH,Urine 6.5 (5.0-8.5); Protein,Urine 2+ (Negative); Specific Gravity, Urine 1.025 (1.005-1.030)
[2020-08-06 23:24] LABS: Urine Pregnancy, HCG Qual. Negative (Negative)
[2020-08-06 23:25] LABS: Bacteria,Urine 1+ /lpf; RBC,Urine Occasional #/hpf (0-3)
[2020-08-06 23:29] LABS: Basophils # 0.1 K/mm3 (0-0.2); Basophils % 0.8 % (0.1-2.0); Eosinophils # 0.3 K/mm3 (0.0-0.4); Eosinophils % 3.8 % (0.1-12.0); Hematocrit 45.2 % (37.0-47.0); Lymphocytes # 2.6 K/mm3 (0.7-4.5); Mean Corpuscular HGB Conc 33.1 g/dL (31.8-35.4); Mean Corpuscular Hemoglobin 29.9 pg (27.0-31.2); Mean Corpuscular Volume 90.3 fl (81-99); Monocytes # 0.5 K/mm3 (0.1-1.0); Monocytes % 5.7 % (1.7-9.3); Neutrophils # 5.2 K/mm3 (1.8-7.8); Neutrophils % 59.8 % (37.0-80.0); Platelet Count 182 K/mm3 (142-424); Red Blood Count 5.01 M/mm3 (4.20-5.40); Red Cell Distribution Width 13.7 % (11.5-17.5); White Blood Count 8.7 K/mm3 (4.8-10.8)
[2020-08-06 23:33] LABS: Chloride 106 mmol/L (98-107); Potassium 3.9 mmoL/L (3.5-5.1); Sodium 140 mmol/L (136-145)
[2020-08-06 23:35] LABS: Lactic Acid 0.7 mmol/L (0.7-2.1); Lipase 47 U/L (23-300)
[2020-08-06 23:36] LABS: Alanine Aminotransferase 23 U/L (12-78); Albumin Level 4.4 g/dl (3.5-5.0); Albumin/Globulin Ratio 1.5 (1.1-1.8); Alkaline Phosphatase 96 U/L (38-126); Anion Gap 12.9 mEq/L (5-15); Aspartate Amino Transferase 23 U/L (14-36); Bilirubin,Total 0.3 mg/dl (0.2-1.3); Blood Urea Nitrogen 14 mg/dl (7-17); Calcium 9.4 mg/dl (8.4-10.2); Carbon Dioxide 25 mmol/L (22.0-30.0); Creatinine Clearance Estimated 160 mL/min (50-200); Estimated Glomerular Filt Rate 97 ml/min (>60); GFR (African American) 117 ML/MIN (>60); Globulin 2.9 g/dL (1.3-3.2); Glucose 105 mg/dl (74-100); Total Protein,Serum 7.3 g/dl (6.3-8.2)
[2020-08-07 01:53] VITALS: BP 116/70; PULSE 77; RESP 16; TEMP 36.6; O2SAT 98
--- NOTE | 2020-08-07 03:42 | [facility].EDGENADL ---
ED Disposition Clinical Impression: Urethritis, nonspecific Disposition: Home, Self-Care Condition on Discharge: Good Instructions: DI for Urinary Tract Infection (UTI) Additional Instructions: You were evaluated in the Emergency Department today for problems urinating. Your urine suggests that you had a UTI recently. Please drink plenty of clear liquids. You will be given a prescription for antibiotics, please take in full as directed. Please follow up with your primary care physician within two days. Please follow up with your primary care physician in 3 days. If you do not have a primary doctor, you can call your insurance company to find one. If you do not have insurance, you can look for one on this of local clinics or go to the finance/registration department for more assistance. Return to the Emergency Department if you experience worsening problems urinating, back pain, blood in your urine, fevers, recurrent vomiting, or any other concerning symptoms. Prescriptions: Nitrofurantoin Monohyd/M-Cryst [Macrobid 100 mg Capsule] 100 mg PO BID 7 Days #14 cap Transmission Status: Received by [facility] Referrals: PCP,No [Primary Care Provider] - - Critical Care Critical Care Time: No Attestation: On 08/06/20, the high probability of a clinically significant, sudden or life threatening deterioration of the following system(s) required my full and direct attention, intervention and personal management. The time I documented below is in addition to time spent performing reported procedures but includes the following listed in this critical care notation. Medical Decision Making - Venancio Inquiry Pt receiving controlled substance: No Vital Signs: 08/06/20 22:46 08/07/20 01:53 Temperature 97.8 F 97.8 F Temperature Source Oral Pulse Rate 77 Pulse Rate [Right] 80 Respiratory Rate 14 16 Blood Pressure 116/70 Blood Pressure [Right Arm] 147/88 H Blood Pressure Mean [Right Arm] 107 02 Sat by Pulse Oximetry 98 Oxygen Delivery Method Room Air - Lab Data Lab Results 08/06/20 22:54: Urine Color Yellow, Urine Appearance Clear, Urine pH 6.5, Ur Specific [place] 1.025, Urine Protein 2+, Urine Glucose (UA) Negative, Urine Ketones Negative, Urine Blood 2+, Urine Nitrate Positive, Urine Bilirubin Negative, Urine Urobilinogen 1.0, Ur Leukocyte Esterase Negative, Urine RBC Occasional, Urine WBC 3-5, Ur Squamous Epith Cells 3-5, Urine Bacteria 1+ 08/06/20 22:54: Urine HCG, Qual Negative 08/06/20 23:15: WBC 8.7, RBC 5.01, Hgb 15.0, Hct 45.2, MCV 90.3, MCH 29.9, MCHC 33.1, RDW 13.7, Plt Count 182, MPV 9.0, Neut % (Auto) 59.8, Lymph % (Auto) 30.0, [place] % (Auto) 5.7, Eos % (Auto) 3.8, Baso % (Auto) 0.8, Neut # (Auto) 5.2, Lymph # (Auto) 2.6, [place] # (Auto) 0.5, Eos # (Auto) 0.3, Baso # (Auto) 0.1 08/06/20 23:15: Lipase 47 08/06/20 23:15: Sodium 140, Potassium 3.9, Chloride 106, Carbon Dioxide 25, Anion Gap 12.9, BUN 14, Creatinine 0.70, Estimated Creat Clear 160, Estimated GFR 97, Est GFR ( Amer) 117, Glucose 105 H, Calcium 9.4, Total Bilirubin 0.3, AST 23, ALT 23, Alkaline Phosphatase 96, Total Protein 7.3, Albumin 4.4, Globulin 2.9, Albumin/Globulin Ratio 1.5 08/06/20 23:15: Lactate 0.7 Result diagrams: 08/06/20 23:15 08/06/20 23:15 Orders (Tests/Meds): ED MEDICATIONS Discontinued Medications Generic Name Dose Route Start Last Admin Trade Name Freq PRN Reason Stop Dose Admin Ondansetron HCl 4 mg 08/06/20 23:08 08/06/20 23:17 Ondansetron 4mg Odt SL 08/06/20 23:09 4 mg ONCE ONE Administration Medical Decision Narrative: Patient is a stable appearing 34-year-old female that is presenting with lower back pain and dysuria. Patient has no red flag symptoms at this time including saddle anesthesia, numbness or tingling, difficulty walking, urinary or bowel incontinence or other severe symptoms. Plan to obtain a basic urinalysis and evaluate for urinary tract infection. Patient's
== END 2020-08-07 01:55 | disposition home or self-care (01) ==
PROVIDERS: Emergency Provider Emergency Medicine
DX: N34.1 Nonspecific urethritis (principal); K21.9 Gastro-esophageal reflux disease without esophagitis; F17.210 Nicotine dependence, cigarettes, uncomplicated; Z88.2 Allergy status to sulfonamides
CPT/HCPCS: 80053; 81001; 81025; 83605; 83690; 85025; 99282

== ENCOUNTER 2020-12-17 15:10 | Emergency (ER) | payer OTHER, SELFPAY ==
[2020-12-17 16:30] VITALS: BP 136/94; PULSE 89; RESP 18; TEMP 36.6; O2SAT 98; BMI 30.9
--- NOTE | 2020-12-17 16:35 | [facility]H.EDUTC ---
[facility] Clinical Impression: Sinusitis Qualifiers: Sinusitis location: unspecified location Chronicity: unspecified Qualified Code(s): J32.9 - Chronic sinusitis, unspecified Disposition: Home, Self-Care Condition on Discharge: Good Instructions: Sinusitis, DI for Sinusitis, DI for COVID-19 (Suspected or Confirmed ), Coronavirus Disease 2018, Preventing the Spread of Coronavirus Discharge Instructions Additional Instructions: *Monitor Temp, Over the counter Motrin or Tylenol as directed/as needed Tylenol every 4 hours and Motrin every 6 hours (as long as your family doctor has told you that you can take it) for fever or pain. and straight to ER if unable to lower temp less than 101.0 after medication given *Warm salt water gargles may help to soothe the throat *Throat Lozenges *Warm fluids like tea with honey may help to soothe the throat *Sleep elevated *Humidifier/Vaporizer *Flonase 2 sprays in each nostril daily but be aware that it may take 2-3 days before you notice improvement Take medication as prescribed Follow up IMMEDIATELY for new or worsening symptoms or no Noticeable improvement over the next 48-72 hours. 911 for difficulty breathing or swallowing You were tested for today for COVID19 your test result should be back in the next 24-48 hours, you may call to the [facility] to see if your test results are back in the next 48 hours [phone] [facility] hours are 9am-9pm You was given a handout with instructions for Self Quarantine and Self isolation for while you wait on test results and what to do if they are positive If you are positive the Health Dept will be contacting you also Make sure to take your Vitamins Vit. C Vit D and Zinc if you can take them Prescriptions: Amoxicillin/Potassium Clav [Augmentin 875-125 Tablet] 1 tab PO Q12H 7 Days #14 tab Transmission Status: Received by [facility] Fluticasone Propionate [Flonase 50mcg nasal spray 16gm] 1 spr NS DAILY #1 ml Transmission Status: Received by [facility] methylPREDNISolone [Medrol 4mg tab] 4 mg PO DIRECTED #21 tab Transmission Status: Received by [facility] Referrals: Provider,Referral, MD [Primary Care Provider] - As needed Forms: Work/School Release Time of Disposition: 16:51 Medical Decision Making - Venancio Inquiry Pt receiving controlled substance: No Venancio was queried for this patient: No Vital Signs: 12/17/20 16:30 12/17/20 16:44 Temperature 97.8 F 97.8 F Temperature Source Oral Pulse Rate 89 Pulse Rate [Left] 89 Respiratory Rate 18 18 Blood Pressure 136/94 H Blood Pressure [Right Arm] 136/94 H Blood Pressure Mean [Right Arm] 108 02 Sat by Pulse Oximetry 98 Orders (Tests/Meds): ED MEDICATIONS Discontinued Medications Generic Name Dose Route Start Last Admin Trade Name Vishnu PRN Reason Stop Dose Admin Ketorolac Tromethamine 60 mg 12/17/20 16:35 12/17/20 16:43 Ketorolac 60mg/2ml Vial IM 12/17/20 16:36 60 mg ONCE ONE Administration ORDERS Category Date Time Status Covid-19 Nasal PCR ([facility]) Routine Lab 12/17/20 16:23 Ordered [facility] [place] - General Stated complaint: covid test,sore throat,cough,NOE Time Seen by Provider: 12/17/20 16:35 Mode of Arrival: Ambulatory Source of Information: Patient Limitations: No Limitations Description of Symptoms (Recalled from Triage Doc. by RN): pt c/o a NOE, sore throat and cough x3 days HEENT Symptoms (Recalled from RN notes): Yes (NOE and sore throat) Resp Symptoms (Recalled from RN notes): Yes (cough) Skin Symptoms (Recalled from RN notes): No MS Symptoms (Recalled from RN notes): No Functional Status (Recalled from RN notes): na - Related Data Previous Rx's Medication Instructions Recorded Nitrofurantoin Monohyd/M-Cryst 100 mg PO BID 7 Days #14 cap 08/07/20 [Macrobid 100 mg Capsule] Amoxicillin/Potassium Clav 1 tab PO Q12H 7 Days #14 tab 12/17/20 [Augmentin 875-125 Tablet] Fluticasone Propionate [Flonase 1
[2020-12-17 16:44] VITALS: BP 136/94; PULSE 89; RESP 18; TEMP 36.6
== END 2020-12-17 16:57 | disposition home or self-care (01) ==
PROVIDERS: Emergency Provider Nurse Practitioner
DX: J32.9 Chronic sinusitis, unspecified (principal); Z20.822 Contact with and (suspected) exposure to COVID-19; K21.9 Gastro-esophageal reflux disease without esophagitis; F17.210 Nicotine dependence, cigarettes, uncomplicated
CPT/HCPCS: 96372; 99202; G0463; U0003

== ENCOUNTER → 2022-10-29 15:45 | Outpatient (CLI) | payer BC, SELFPAY ==
--- NOTE | 2022-10-29 15:53 | XR_ITS ---
FINAL REPORT CLINICAL HISTORY: RT FOOT PAIN, MEDIAL FOOT PAIN, NO INJURY FINDINGS: RIGHT FOOT SERIES Three views of the right foot were obtained. There is no acute fracture or dislocation. The joint spaces are preserved. There is no soft tissue abnormality. There is a small plantar calcaneal spur. IMPRESSION: No acute abnormality. Reviewed, Interpreted and Dictated by Maurizio Ralph III, MD Transcribed by Henny Donahue Authenticated and . [facility]
== END ==
PROVIDERS: PCP Nurse Practitioner Family; Visit Provider Nurse Practitioner Family
DX: M79.671 Pain in right foot (principal)
CPT/HCPCS: 73630

== ENCOUNTER 2023-10-16 14:24 | Emergency (ER) | payer BC, SELFPAY ==
[2023-10-16 15:30] VITALS: BP 130/59; PULSE 76; RESP 18; TEMP 36.8; O2SAT 100; BMI 33.0
--- NOTE | 2023-10-16 16:27 | EXP.UTC ---
Discharge Plan Disposition Patient Disposition: Home, Self-Care Condition: Good Prescriptions Prescriptions: No Action No Known Home Medications Referrals Follow up/Referrals: Chrissy Carl APRN [Primary Care Provider] - See instructions Activity Restrictions/Add. Instructions Additional Instructions/Restrictions: monitor for fever monitor for s/s of infection follow up with pcp for more testing Clinical Impressions Clinical Impression: Acute breast pain Instructions Patient Instructions: DI for Breast Pain (Mastalgia) Discharge ED [facility] [place] HPI General Stated complaint: left breast area swollen achy Mode of Arrival: Ambulatory Source of Information: Patient Limitations: No Limitations Time Seen by Provider: 10/16/23 16:27 Description of Symptoms (Recalled from Triage Doc. by RN): Pt's symptoms are left breast pain. HEENT Symptoms (Recalled from RN notes): Yes Resp Symptoms (Recalled from RN notes): No Skin Symptoms (Recalled from RN notes): No MS Symptoms (Recalled from RN notes): No Functional Status (Recalled from RN notes): n/a History of Present Illness Provider Complaint: 37 yr old female presents for left breast pain. denies fever or discharge Related Data Home Medications Medication Instructions Recorded Confirmed No Known Home Medications 11/24/22 12/09/22 Allergies Allergy/AdvReac Type Severity Reaction Status Date / Time Sulfa (Sulfonamide Allergy Unknown Verified 10/16/23 15:42 Antibiotics) [SULFA (SULFONAMIDE ANTIBIOTICS)] Worker's Comp Is this a Worker's Comp case?: No [facility] Disclaimer: The information contained in this section may have been updated after the patient was seen, as this information can be updated by other users. 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) Smoking Status: Current every day smoker tobacco type: cigarettes packs per day: 1 alcohol intake: never substance use type: denies use current occupational status: employed Travel in the last 8 weeks: None ROS Obtained: Yes All systems reviewed & no additional complaints except as documented Constitutional Constitutional: Reports system reviewed and no additional complaints, except as documented Eyes Eyes: Reports system reviewed and no additional complaints, except as documented ENT Ears, Nose, Mouth, and Throat: Reports system reviewed and no additional complaints, except as documented Cardiovascular Cardiovascular: Reports system reviewed and no additional complaints, except as documented Respiratory Respiratory: Reports system reviewed and no additional complaints, except as documented Gastrointestinal Gastrointestingal: Reports system reviewed and no additional complaints, except as documented Genitourinary Female Genitourinary: Reports system reviewed and no additional complaints, except as documented and Reports as per HPI (breast pain) Musculoskeletal Musculoskeletal: Reports system reviewed and no additional complaints, except as documented Integumentary/Breasts Skin/Breast: Reports system reviewed and no additional complaints, except as documented, Reports breast pain and Reports breast swelling Neurologic Neurologic: Reports system reviewed and no additional complaints, except as documented Endocrine Endocrine: Reports system reviewed and no additional complaints, except as documented Allergic/Immunologic Allergic/Immunologic: Reports system reviewed and no additional complaints, except as documented Physical Exam General General appearance: alert and in no apparent distress Head Head exam: atraumatic Eye Eye exam: Present normal appearance and PERRL ENT ENT exam: Present normal exam, normal oropharynx and mucous membranes moist Chest Chest inspection: Present normal inspection Expanded Chest Exam Female Torso: 1. tender, no redness, no swelling noted Respiratory Respiratory exam: Present normal lung sounds bilaterally Cardiovascular Cardiovascular exam: Present regular rate and normal rhythm Neurological Exam Neurological exam: Present alert and oriented X3 Skin Skin exam: Present warm and intact Lymphatic Lymphatic Findings: no adenopathy Medical Decision Making Medical Records Medical records reviewed: Yes I reviewed the patient's medical records. Venancio Inquiry Pt receiving controlled substance: No Venancio was queried for this patient: No Vital Signs: 10/16/23 15:30 Temperature 98.3 F Temperature Source Oral Pulse Rate [Right Radial] 76 Respiratory Rate 18 Blood Pressure [Right Arm] 130/59 L Blood Pressure Mean [Right Arm] 82 Blood Pressure Source [Right Arm] Automatic Cuff Blood Pressure Position [Right Arm] Sitting 02 Sat by Pulse Oximetry 100 Oxygen Delivery Method Room Air
[2023-10-16 16:49] VITALS: BP 130/59; PULSE 76; RESP 18; TEMP 36.8; O2SAT 100
== END 2023-10-16 16:49 | disposition home or self-care (01) ==
PROVIDERS: Emergency Provider Nurse Practitioner Family; PCP Nurse Practitioner Family
DX: N64.4 Mastodynia (principal)
CPT/HCPCS: 99212; 99213; G0463